=== PATIENT | female | born 1945 | race Caucasian/White ===

== ENCOUNTER 2017-11-17 20:36 | Emergency (ER) | payer OTHER, MEDICARE ==
[~2017-11-17] VITALS: Ht 157.5 cm; Wt 85.7 kg
[~2017-11-17 20:36] MED LIST: ACYSUS PO; ALBU8.5H2 IH; ALBU8.5HRX IH; ASP81CT PO; ASP81TEC PO; ASPI-84 PO; AZIT200S47 PO; CEFD125SRX PO; CEFD250S3 PO; CEFD300C3 PO; CLOP75TA PO; CYCL10TA45 PO; CYCL5TAB11 PO; D-ME118S33 PO; GUAI118L10 PO; HYDR118S PO; HYDR15SO6 PO; HYDROCODONE; IBUP200T48 PO; IPRA15SP NS; KETO-22 PO; LEVO125T6 PO; LEVO75TA57; LVT.112T PO; MORP20DI PO; MULT-383 PO; NAPR-243 PO; NEBI5TAB8 PO; NFNEB10T PO; NYST1000 PO; ONDAN4ODT SL; OSEL6SUS3 PO; OXYC500S2 PO; PRD152401 PO; PRD20T PO; ROSU5TAB; ROSU5TAB PO; SMV20T PO; SMXTMP10ML PO; SULF1TAB38 PO
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
[2017-11-17] MEDS ORDERED: IOHEXOL 350 MG/ML 100 ML (OMNIPAQUE 350) VIAL IV ONE (21:30)
[2017-11-17] MEDS ORDERED: NS 250 ML (IVPB) BAG IV ONE (21:30)
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
[2017-11-17 22:01] LABS: BASOPHILS % (AUTO) 1 % (0-10); EOSINOPHILS % (AUTO) 0 % (0-10); HEMATOCRIT 40 % (35-52); HEMOGLOBIN 12.9 G/DL (11.5-16.0); LYMPHOCYTES % (AUTO) 32 % (12-44); MEAN CORPUSCULAR HEMOGLOBIN 30 PG (25-34); MEAN CORPUSCULAR HGB CONC 33 G/DL (32-36); MEAN CORPUSCULAR VOLUME 93 FL (80-99); MEAN PLATELET VOLUME 12.8 FL (7.4-10.4); MONOCYTES # (AUTO) 0.5 X 10^3 (0.0-1.0); MONOCYTES % (AUTO) 9 % (0-12); NEUTROPHILS # (AUTO) 3.6 X 10^3 (1.8-7.8); NEUTROPHILS % (AUTO) 59 % (42-75); PLATELET COUNT 165 10^3/uL (130-400); RED BLOOD COUNT 4.29 10^6/uL (4.35-5.85); RED CELL DISTRIBUTION WIDTH 13.9 % (10.0-14.5); WHITE BLOOD COUNT 6.2 10^3/uL (4.3-11.0)
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
[2017-11-17 22:04] LABS: PROTHROMBIN TIME PATIENT 12.6 SEC (12.2-14.7)
[2017-11-17] MEDS ORDERED: KETOROLAC 30 MG/ML VIAL IVP STA (22:05)
[2017-11-17] MEDS ORDERED: fentaNYL INJECTION 100 MCG/2 ML AMP IVP STA (22:05)
[2017-11-17] MEDS ORDERED: ORPHENADRINE 60 MG/2 ML (NORFLEX) AMP IV STA (22:05)
[2017-11-17] MEDS ORDERED: TETANUS,DIPTH,PERTUSS P/F (BOOSTRIX) 0.5 ML VIAL IM STA (22:05)
[2017-11-17] MEDS ORDERED: LABETALOL HCL 20 MG/4 ML VIAL IV ONE (22:15)
[2017-11-17 22:17] LABS: ALANINE AMINOTRANSFERASE 13 U/L (0-55); ALBUMIN 4.3 GM/DL (3.2-4.5); BILIRUBIN,DIRECT 0.2 MG/DL (0.0-0.3); BILIRUBIN,INDIRECT 0.2 MG/DL; BILIRUBIN,TOTAL 0.4 MG/DL (0.1-1.0); BUN/CREATININE RATIO 14; CALCIUM 9.6 MG/DL (8.5-10.1); CARBON DIOXIDE 21 MMOL/L (21-32); CHLORIDE 110 MMOL/L (98-107); CHOLESTEROL 208 MG/DL (< 200); CREATININE SERUM 1.18 MG/DL (0.60-1.30); GFR ESTIMATED 45; GLUCOSE 131 MG/DL (70-105); HDL CHOLESTEROL 54 MG/DL (40-60); MAGNESIUM 2.2 MG/DL (1.8-2.4); SODIUM 142 MMOL/L (135-145); TOTAL PROTEIN 6.6 GM/DL (6.4-8.2); TRIGLYCERIDES 126 MG/DL (<150); VLDL CHOLESTEROL 25 MG/DL (5-40)
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
[2017-11-17] MEDS ORDERED: HYDR10SO4 PO (22:21)
[2017-11-17] MEDS ORDERED: IBUP100O28 PO (22:21)
[2017-11-17 22:29] LABS: BILIRUBIN,URINE NEGATIVE (NEGATIVE); CLARITY,URINE CLEAR; COLOR,URINE YELLOW; GLUCOSE, URINE (UA) NEGATIVE (NEGATIVE); KETONES,URINE NEGATIVE (NEGATIVE); LEUKOCYTE ESTERASE ,URINE NEGATIVE (NEGATIVE); NITRITE,URINE NEGATIVE (NEGATIVE); PH,URINE 7 (5-9); PROTEIN,URINE 1+ (NEGATIVE); UROBILINOGEN,URINE NORMAL (NORMAL)
[2017-11-17] MEDS ORDERED: RX-ACETAMINOPHEN/CODEINE 30 ML BTL PO PRN (22:30)
[2017-11-17 22:35] LABS: RBC,URINE RARE /HPF
[2017-11-17 22:41] LABS: ALKALINE PHOSPHATASE 72 U/L (40-136)
[2017-11-17 22:45] VITALS: BP 180/92
== END 2017-11-17 22:49 | disposition home or self-care (01) ==
LOC: EDUNIT# 20:36 → ER 20:37
DX: S16.1XXA Strain of muscle, fascia and tendon at neck level, initial encounter (principal); S23.3XXA Sprain of ligaments of thoracic spine, initial encounter; S39.012A Strain of muscle, fascia and tendon of lower back, initial encounter; S46.911A Strain of unspecified muscle, fascia and tendon at shoulder and upper arm level, right arm, initial encounter; S93.402A Sprain of unspecified ligament of left ankle, initial encounter; I10 Essential (primary) hypertension; J45.909 Unspecified asthma, uncomplicated; I25.10 Atherosclerotic heart disease of native coronary artery without angina pectoris; E78.00 Pure hypercholesterolemia, unspecified; R40.2142 Coma scale, eyes open, spontaneous, at arrival to emergency department; R40.2252 Coma scale, best verbal response, oriented, at arrival to emergency department; R40.2362 Coma scale, best motor response, obeys commands, at arrival to emergency department; K21.9 Gastro-esophageal reflux disease without esophagitis; E03.9 Hypothyroidism, unspecified; E11.9 Type 2 diabetes mellitus without complications; Z87.19 Personal history of other diseases of the digestive system; Z79.51 Long term (current) use of inhaled steroids; Z95.1 Presence of aortocoronary bypass graft; Z23 Encounter for immunization; Z98.1 Arthrodesis status; V47.5XXA Car driver injured in collision with fixed or stationary object in traffic accident, initial encounter
CPT/HCPCS: 36415; 70450; 71045; 71260; 72125; 72128; 72131; 72170; 73000; 73060; 73090; 73130; 73610; 74177; 80053; 80061; 80076; 80320; 81000; 82248; 83735; 83874; 84484; 84703; 85025; 85027; 85610; 85730; 86850; 86900; 86901; 90471; 90715; 93005; 96374; 96375

== ENCOUNTER 2017-11-24 10:22 | Emergency (ER) | payer OTHER, MEDICARE ==
[~2017-11-24] VITALS: Ht 157.5 cm; Wt 85.7 kg
[~2017-11-24 10:22] MED LIST changes: +HYDR10SO4 PO; +IBUP100O28 PO
[2017-11-24] MEDS ORDERED: fentaNYL INJECTION 100 MCG/2 ML AMP IVP ONE (11:00)
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
[2017-11-24 11:17] LABS: BASOPHILS % (AUTO) 0 % (0-10); EOSINOPHILS % (AUTO) 0 % (0-10); HEMATOCRIT 41 % (35-52); HEMOGLOBIN 13.2 G/DL (11.5-16.0); LYMPHOCYTES # (AUTO) 0.9 X 10^3 (1.0-4.0); LYMPHOCYTES % (AUTO) 15 % (12-44); MEAN CORPUSCULAR HEMOGLOBIN 30 PG (25-34); MEAN CORPUSCULAR HGB CONC 32 G/DL (32-36); MEAN CORPUSCULAR VOLUME 93 FL (80-99); MONOCYTES # (AUTO) 0.5 X 10^3 (0.0-1.0); MONOCYTES % (AUTO) 8 % (0-12); NEUTROPHILS # (AUTO) 4.5 X 10^3 (1.8-7.8); NEUTROPHILS % (AUTO) 77 % (42-75); PLATELET COUNT 166 10^3/uL (130-400); RED BLOOD COUNT 4.45 10^6/uL (4.35-5.85); WHITE BLOOD COUNT 5.8 10^3/uL (4.3-11.0)
[2017-11-24] MEDS ORDERED: ONDANSETRON 4 MG/2 ML (SDV) Z0FRAN IVP ONE (11:30)
[2017-11-24 11:39] LABS: INR 0.9 (0.8-1.4); PROTHROMBIN TIME PATIENT 12.5 SEC (12.2-14.7)
[2017-11-24 11:45] LABS: ALANINE AMINOTRANSFERASE 10 U/L (0-55); ALBUMIN 4.2 GM/DL (3.2-4.5); ALKALINE PHOSPHATASE 73 U/L (40-136); BILIRUBIN,TOTAL 0.5 MG/DL (0.1-1.0); BUN/CREATININE RATIO 23; CALCIUM 9.4 MG/DL (8.5-10.1); CARBON DIOXIDE 24 MMOL/L (21-32); CHLORIDE 108 MMOL/L (98-107); CREATININE SERUM 1.02 MG/DL (0.60-1.30); GFR ESTIMATED 53; GLUCOSE 100 MG/DL (70-105); MAGNESIUM 2.4 MG/DL (1.8-2.4); POTASSIUM 4.5 MMOL/L (3.6-5.0); SODIUM 142 MMOL/L (135-145); TOTAL PROTEIN 6.3 GM/DL (6.4-8.2)
[2017-11-24 11:53] LABS: MYOGLOBIN SERUM 43.8 NG/ML (10.0-92.0)
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
[2017-11-24 13:09] VITALS: BP 165/95
--- OUTSIDE RECORDS SUMMARY | 2017-11-26 03:37 | XMS REPORT | Continuity of Care Document ---
Author Author [facility] Organization [facility] Address Unknown Phone Unavailable Allergies Active Description Code Type Severity Reaction Onset Reported/Identified Relationship to Patient Clinical Status Yes No Known Drug Allergies [id number] Drug Allergy Unknown N/A 11/26/2008 Medications There is no data. Problems Date Dx Coded Attending Type Code Diagnosis Diagnosed By 09/24/2009 Ot 780.2 09/24/2009 Ot 780.4 07/29/2010 Ot 401.9 07/29/2010 Ot 724.02 07/29/2010 Ot 733.00 07/29/2010 Ot V57.1 11/08/2010 Ot 845.00 11/08/2010 Ot 959.7 11/08/2010 Ot E000.8 11/08/2010 Ot E001.0 11/08/2010 Ot E849.0 11/08/2010 Ot E880.9 11/22/2010 Ot 682.3 11/22/2010 Ot 913.4 10/24/2011 Ot 244.9 10/24/2011 Ot 272.4 10/24/2011 Ot 401.9 10/24/2011 Ot 414.01 10/24/2011 Ot 593.9 10/24/2011 Ot 729.81 10/24/2011 Ot 786.50 10/24/2011 Ot V13.02 10/24/2011 Ot V45.81 10/24/2011 Ot V58.66 10/24/2011 Ot V58.69 01/21/2012 Ot 244.9 01/21/2012 Ot 250.00 01/21/2012 Ot 272.4 01/21/2012 Ot 401.9 01/21/2012 Ot 414.00 01/21/2012 Ot 493.90 01/21/2012 Ot 530.81 01/21/2012 Ot 715.90 01/21/2012 Ot 729.1 01/21/2012 Ot 733.00 01/21/2012 Ot 786.52 01/21/2012 Ot V45.81 01/30/2012 Ot 053.9 01/30/2012 Ot 244.9 01/30/2012 Ot 403.90 01/30/2012 Ot 414.00 01/30/2012 Ot 530.81 01/30/2012 Ot 585.9 01/30/2012 Ot 599.0 01/30/2012 Ot 729.1 01/30/2012 Ot V45.81 04/11/2012 Ot 682.2 CELLULITIS OF TRUNK 11/04/2012 KORI VERGARA, ALEKSANDRA Beltran Ot 959.2 SHLDR/UPPER ARM INJ NOS 11/04/2012 ALEKSANDRA SHEIKH MD Ot E000.8 OTHER EXTERNAL CAUSE STATUS 11/04/2012 ALEKSANDRA SHEIKH MD Ot E819.9 TRAFFIC ACC NOS-PERS NOS 04/26/2013 ALEKSANDRA SHEIKH MD Ot 465.9 ACUTE URI NOS 04/26/2013 ALEKSANDRA SHEIKH MD Ot 784.0 HEADACHE 04/26/2013 ALEKSANDRA SHEIKH MD Ot 786.2 COUGH 04/26/2013 ALEKSANDRA SHEIKH MD Ot 787.01 NAUSEA WITH VOMITING 05/15/2013 MARIA ANTONIA MARIA MD Ot 721.1 05/26/2013 BLAKE BARRY MD Ot 338.18 OTHER ACUTE POSTOPERATIVE PAIN 05/26/2013 BLAKE BARRY MD Ot 723.1 CERVICALGIA 06/05/2013 MARAI ANTONIA MARIA MD Ot 250.00 DIAB DARLYN WO COMPL, TYPE II OR UNSPEC TY 06/05/2013 MARIA ANTONIA MARIA MD Ot 272.0 PURE HYPERCHOLESTEROLEM 06/05/2013 MARIA ANTONIA MARIA MD Ot 401.9 HYPERTENSION NOS 06/05/2013 MARIA ANTONAI MARIA MD Ot 414.00 CORON ATHEROSCLER NOS TYPE VESSEL, NATIV 06/05/2013 MARIA ANTONIA MARIA MD Ot 478.6 EDEMA OF LARYNX 06/05/2013 MARIA ANTONIA MARIA MD Ot 493.90 ASTHMA, UNSPECIFIED 06/05/2013 MARIA ANTONIA MARIA MD Ot 518.0 PULMONARY COLLAPSE 06/05/2013 MARIA ANTONIA MARIA MD Ot 518.51 ACUTE RESPIRATORY FAILURE FOLLOWING TRAU 06/05/2013 MARIA ANTONIA MARIA MD Ot 530.81 ESOPHAGEAL REFLUX 06/05/2013 MARIA ANTONIA MARIA MD Ot 721.1 CERV SPONDYL W MYELOPATH 06/05/2013 MARIA ANTONIA MARIA MD Ot 729.1 MYALGIA AND MYOSITIS NOS 06/05/2013 MARIA ANTONIA MARIA MD Ot 733.00 OSTEOPOROSIS NOS 06/05/2013 MARIA ANTONIA MARIA MD Ot 996.49 [facility] CYTOPATHOLOGY TECHNOLOGIST ORTHOPEDIC 06/05/2013 MARIA ANTONIA MARIA MD Ot V45.81 AORTOCORONARY BYPASS 09/13/2013 RENZO BARNHART Ot 709.2 SCAR FIBROSIS OF SKIN 09/13/2013 RENZO BARNHART Ot V45.4 ARTHRODESIS STATUS 09/13/2013 RENZO BARNHART Ot V57.1 PHYSICAL THERAPY NEC 12/20/2013 MEGHNA THORNE APRN Ot 272.0 PURE HYPERCHOLESTEROLEM 12/20/2013 MEGHNA THORNE APRN Ot 366.9 CATARACT NOS 12/20/2013 MEGHNA THORNE APRN Ot 401.9 HYPERTENSION NOS 12/20/2013 MEGHNA THORNE APRN Ot 414.01 CORONARY ATHEROSCLEROSIS OF [place] CORON 12/20/2013 MEGHNA THORNE APRN Ot 490 BRONCHITIS NOS 12/20/2013 MEGHNA THORNE APRN Ot 564.1 IRRITABLE BOWEL SYNDROME 12/20/2013 MEGHNA THORNE APRN Ot 786.2 COUGH 12/20/2013 MEGHNA THORNE APRN Ot V58.62 ENCOUNT FOR LONG-TERM(CURRENT) USE OF AN 12/20/2013 MEGHNA THORNE APRN Ot V58.65 LONG-TERM(CURRENT)USE OF STEROIDS 12/20/2013 MEGHNA THORNE APRN Ot V58.66 LONG-TERM (CURRENT) USE OF ASPIRIN 12/20/2013 MEGHNA THORNE APRN Ot V58.69 OT MED,LT,CURRENT USE 03/31/2014 ESTHER MELENDEZ MD Ot 724.02 03/31/2014 ESTHER MELENDEZ MD Ot V72.84 04/01/2014 ESTHER MELENDEZ MD Ot 228.09 HEMANGIOMA NEC 04/01/2014 ESTHER MELENDEZ MD Ot 724.03 SPINAL STENOSIS, LUMBAR REGION, W NEUROG 04/01/2014 ESTHER MELENDEZ MD Ot 733.13 PATHOLOGIC FRACTURE, VERTEBRAE 04/01/2014 ESTHER MELENDEZ MD Ot V57.1 PHYSICAL THERAPY NEC 04/04/2014 ESTHER MELENDEZ MD Ot 228.00 04/04/2014 ESTHER MELENDEZ MD Ot 724.02 04/04/2014 ESTHER MELENDEZ MD Ot V72.63 04/04/2014 ESTHER MELENDEZ MD Ot V74.8 05/30/2014 Ot 272.4 05/30/2014 Ot 401.9 05/30/2014 Ot 414.00 05/30/2014 Ot 429.3 05/30/2014 Ot 272.4 05/30/2014 Ot 401.9 05/30/2014 Ot 414.00 05/30/2014 Ot 272.4 05/30/2014 Ot 429.3 05/30/2014 Ot 786.09 05/30/2014 Ot 786.2 05/30/2014 Ot 786.50 05/30/2014 Ot 401.9 05/30/2014 Ot 414.00 05/30/2014 Ot 599.0 05/30/2014 Ot 272.4 05/30/2014 Ot 401.9 05/30/2014 Ot 414.00 05/30/2014 Ot 433.10 05/30/2014 Ot 786.09 05/30/2014 JANIE VERGARA, VINH Vargas Ot 272.4 05/30/2014 MARIA ANTONIA MARIA MD Ot 723.0 05/30/2014 MARIA ANTONIA MARIA MD Ot V72.84 05/30/2014 MARIA ANTONIA MARIA MD Ot V74.8 05/30/2014 RACHEL ECHEVERRIA MOLTEN IRON POURER Ot 786.07 05/30/2014 RACHEL ECHEVERRIA Ot 786.2 05/30/2014 MARIA ANTONIA MARIA MD Ot V54.01 05/30/2014 MARIA ANTONIA MARIA MD Ot V72.84 05/30/2014 MARIA ANTONIA MARIA MD Ot 724.2 05/30/2014 MARIA ANTONIA MARIA MD Ot 729.5 05/30/2014 MARIA ANTONIA MARIA MD Ot 793.7 05/30/2014 ESTHER MELENDEZ MD Ot 228.00 05/30/2014 ESTHER MELENDEZ MD Ot 724.02 05/30/2014 ESTHER MELENDEZ MD Ot V72.63 05/30/2014 ESTHER MELENDEZ MD Ot V74.8 05/30/2014 NORA VERGARA, ESTHER Vargas Ot 724.02 05/30/2014 NORA VERGARA, ESTHER Vargas Ot V72.84 06/10/2014 MEGHNA THORNE BATT PACKER Ot 487.1 FLU W RESP MANIFEST NEC 06/10/2014 MEGHNA THORNE BATT PACKER Ot 786.2 COUGH 06/19/2014 ORENDER DO, RADHA S Ot 250.00 DIAB DARLYN WO COMPL, TYPE II OR UNSPEC TY 06/19/2014 ORENDER DO, RADHA S Ot 272.0 PURE HYPERCHOLESTEROLEM 06/19/2014 ORENDER DO, RADHA S Ot 278.00 OBESITY, NOS 06/19/2014 ORENDER DO, RADHA S Ot 401.9 HYPERTENSION NOS 06/19/2014 ORENDER DO, RADHA S Ot 414.00 CORON ATHEROSCLER NOS TYPE VESSEL, NATIV 06/19/2014 ORENDER DO, RADHA S Ot 486 PNEUMONIA, ORGANISM NOS 06/19/2014 ORENDER DO, RADHA S Ot 487.0 INFLUENZA WITH PNEUMONIA 06/19/2014 ORENDER DO, RADHA S Ot 493.90 ASTHMA, UNSPECIFIED 06/19/2014 ORENDER DO, RADHA S Ot 530.81 ESOPHAGEAL REFLUX 06/19/2014 ORENDER DO, RADHA S Ot 553.3 DIAPHRAGMATIC HERNIA 06/19/2014 ORENDER DO, RADHA S Ot 564.1 IRRITABLE BOWEL SYNDROME 06/19/2014 ORENDER DO, RADHA S Ot 596.51 HYPERTONICITY OF BLADDER 06/19/2014 ORENDER DO, RADHA S Ot 723.0 CERVICAL SPINAL STENOSIS 06/19/2014 ORENDER DO, RADHA S Ot 785.0 TACHYCARDIA NOS 06/19/2014 ORENDER DO, RADHA S Ot V45.81 AORTOCORONARY BYPASS 06/19/2014 ORENDER DO, RADHA S Ot V85.41 BODY MASS INDEX 40.0-44.9, ADULT 06/23/2014 YARY DOFRANCE Ot 717.2 06/23/2014 YARY DOFRANCE Ot 717.7 06/23/2014 YARY DOFRANCE Ot 727.51 06/23/2014 ORENDER DO, RADHA S Ot 244.9 06/23/2014 ORENDER DO, RADHA S Ot 272.4 06/23/2014 ORENDER DO, RADHA S Ot 780.79 11/27/2014 ORENDER DO, RADHA S Ot 244.9 11/27/2014 ORENDER DO, RADHA S Ot 250.00 11/27/2014 ORENDER DO, RADHA S Ot 272.4 01/08/2015 Ot 272.4 01/08/2015 Ot 401.9 01/08/2015 Ot 414.00 01/08/2015 Ot 429.3 01/08/2015 Ot 272.4 01/08/2015 Ot 401.9 01/08/2015 Ot 414.00 01/08/2015 Ot 272.4 01/08/2015 Ot 429.3 01/08/2015 Ot 786.09 01/08/2015 Ot 786.2 01/08/2015 Ot 786.50 01/08/2015 Ot 401.9 01/08/2015 Ot 414.00 01/08/2015 Ot 599.0 01/08/2015 Ot 272.4 01/08/2015 Ot 401.9 01/08/2015 Ot 414.00 01/08/2015 Ot 433.10 01/08/2015 Ot 786.09 01/08/2015 JANIE VERGARA, VINH Vargas Ot 272.4 01/08/2015 CROW VERGARA, MARIA ANTONIA Russo Ot 723.0 01/08/2015 CROW VERGARA, MARIA ANTONIA Russo Ot V72.84 01/08/2015 CROW VERGARA, MARIA ANTONIA Russo Ot V74.8 01/08/2015 RACHEL ECHEVERRIA Ot 786.07 01/08/2015 RACHEL ECHEVERRIA Ot 786.2 01/08/2015 CROW VERGARA, MARIA ANTONIA Russo Ot V54.01 01/08/2015 MARIA ANTONIA MARIA MD Ot V72.84 01/08/2015 CROW VERGARA, MARIA ANTONIA Russo Ot 724.2 01/08/2015 CROW VERGARA, MARIA ANTONIA Russo Ot 729.5 01/08/2015 MARIA ANTONIA MARIA MD Ot 793.7 01/08/2015 NORA VERGARA, ESTHER Vargas Ot 228.00 01/08/2015 NORA VERGARA, ESTHER Vargas Ot 724.02 01/08/2015 ESTHER MELENDEZ MD Ot V72.63 01/08/2015 ESTHER MELENDEZ MD Ot V74.8 01/08/2015 ESTHER MELENDEZ MD Ot 724.02 01/08/2015 ESTHER MELENDEZ MD Ot V72.84 01/08/2015 YARY DO, FRANCE F Ot 717.2 01/08/2015 YARY DO, FRANCE F Ot 717.7 01/08/2015 YARY DO, FRANCE F Ot 727.51 01/08/2015 ORENDER DO, RADHA S Ot 244.9 01/08/2015 ORENDER DO, RADHA S Ot 272.4 01/08/2015 ORENDER DO, RADHA S Ot 780.79 01/08/2015 ORENDER DO, RADHA S Ot 244.9 01/08/2015 ORENDER DO, RADHA S Ot 250.00 01/08/2015 ORENDER DO, RADHA S Ot 272.4 01/08/2015 ESTHER MELENDEZ MD Ot 723.1 CERVICALGIA 01/08/2015 ESTHER MELENDEZ MD Ot 724.02 SPINAL STENOSIS, LUMBAR REG, W/OUT NEURO 01/08/2015 ESTHER MELENDEZ MD Ot M48.06 SPINAL STENOSIS, LUMBAR REGION 01/08/2015 ESTHER MELENDEZ MD Ot M54.2 CERVICALGIA 01/08/2015 ESTHER MELENDEZ MD Ot V45.4 ARTHRODESIS STATUS 02/10/2015 Ot 272.4 02/10/2015 Ot 401.9 02/10/2015 Ot 414.00 02/10/2015 Ot 429.3 02/10/2015 Ot 272.4 02/10/2015 Ot 401.9 02/10/2015 Ot 414.00 02/10/2015 Ot 272.4 02/10/2015 Ot 429.3 02/10/2015 Ot 786.09 02/10/2015 Ot 786.2 02/11/2015 Ot 272.4 02/11/2015 Ot 401.9 02/11/2015 Ot 414.00 02/11/2015 Ot 429.3 02/11/2015 Ot 272.4 02/11/2015 Ot 401.9 02/11/2015 Ot 414.00 02/11/2015 Ot 272.4 02/11/2015 Ot 429.3 02/11/2015 Ot 786.09 02/11/2015 Ot 786.2 02/11/2015 Ot 272.4 02/11/2015 Ot 401.9 02/11/2015 Ot 414.00 02/11/2015 Ot 429.3 02/11/2015 Ot 272.4 02/11/2015 Ot 401.9 02/11/2015 Ot 414.00 02/11/2015 Ot 272.4 02/11/2015 Ot 429.3 02/11/2015 Ot 786.09 02/11/2015 Ot 786.2 02/11/2015 Ot 272.4 02/11/2015 Ot 401.9 02/11/2015 Ot 414.00 02/11/2015 Ot 429.3 02/11/2015 Ot 272.4 02/11/2015 Ot 401.9 02/11/2015 Ot 414.00 02/11/2015 Ot 272.4 02/11/2015 Ot 429.3 02/11/2015 Ot 786.09 02/11/2015 Ot 786.2 09/13/2015 BLAKE BARRY MD Ot 338.18 OTHER ACUTE POSTOPERATIVE PAIN 09/13/2015 BLAKE BARRY MD Ot 723.1 CERVICALGIA 10/11/2015 MEGHNA THORNE APRN Ot H66.91 OTITIS MEDIA, UNSPECIFIED, RIGHT EAR 10/11/2015 MEGHNA THORNE APRN Ot I51.7 CARDIOMEGALY 10/11/2015 MEGHNA THORNE APRN Ot J40 BRONCHITIS, NOT SPECIFIED ACUTE OR CH 10/13/2015 MEGHNA THORNE BATT PACKER Ot H66.91 OTITIS MEDIA, UNSPECIFIED, RIGHT EAR 10/13/2015 MEGHNA THORNE BATT PACKER Ot I51.7 CARDIOMEGALY 10/13/2015 MEGHNA THORNE BATT PACKER Ot J40 BRONCHITIS, NOT SPECIFIED ACUTE OR CH 10/13/2015 MEGHNA THORNE APRN Ot H66.91 OTITIS MEDIA, UNSPECIFIED, RIGHT EAR 10/13/2015 MEGHNA THORNE APRN Ot I51.7 CARDIOMEGALY 10/13/2015 MEGHNA THORNE BATT PACKER Ot J40 BRONCHITIS, NOT SPECIFIED ACUTE OR CH 11/13/2015 BLAKE BARRY MD Ot 338.18 OTHER ACUTE POSTOPERATIVE PAIN 11/13/2015 BLAKE BARRY MD Ot 723.1 CERVICALGIA 02/13/2016 BLAKE BARRY MD Ot 338.18 OTHER ACUTE POSTOPERATIVE PAIN 02/13/2016 BLAKE BARRY MD Ot 723.1 CERVICALGIA 09/29/2017 Ot 272.4 HYPERLIPIDEMIA NEC/NOS 09/29/2017 Ot 401.9 HYPERTENSION NOS 09/29/2017 Ot 414.00 CORON ATHEROSCLER NOS TYPE VESSEL, NATIV 09/29/2017 Ot 433.10 CAROTID ARTERY OCCLUSION W O CEREBRAL IN 09/29/2017 Ot 786.09 RESPIRATORY ABNORM NEC 09/29/2017 VINH LIMA MD Ot 272.4 HYPERLIPIDEMIA NEC/NOS 09/29/2017 MARIA ANTONIA MARIA MD Ot 723.0 CERVICAL SPINAL STENOSIS 09/29/2017 MARIA ANTONIA MARIA MD Ot V72.84 EXAM PRE-OPERATIVE NOS 09/29/2017 MARIA ANTONIA MARIA MD Ot V74.8 SCREEN-BACTERIAL DIS NEC 09/29/2017 RACHEL ECHEVERRIA MOLTEN IRON POURER Ot 786.07 WHEEZING 09/29/2017 RACHEL ECHEVERRIA MOLTEN IRON POURER Ot 786.2 COUGH 09/29/2017 MARIA ANTONIA MARIA MD Ot V54.01 ENCNTR FOR REMOVAL OF INTERNAL FIXATION 09/29/2017 MARIA ANTONIA MARIA MD Ot V72.84 EXAM PRE-OPERATIVE NOS 09/29/2017 MARIA ANTONIA MARIA MD Ot 724.2 LUMBAGO 09/29/2017 MARIA ANTONIA MARIA MD Ot 729.5 PAIN IN LIMB 09/29/2017 MARIA ANTONIA MARIA MD Ot 793.7 NOSP (ABN) FINDINGS ON RADIOLOGICAL OT 09/29/2017 ESTHER MELENDEZ MD Ot 228.00 HEMANGIOMA NOS 09/29/2017 ESTHER MELENDEZ MD Ot 724.02 SPINAL STENOSIS, LUMBAR REG, W/OUT NEURO 09/29/2017 ESTHER MELENDEZ MD Ot V72.63 PRE-PROCEDURAL LABORATORY EXAMINATION 09/29/2017 ESTHER MELENDEZ MD Ot V74.8 SCREEN-BACTERIAL DIS NEC 09/29/2017 ESTHER MELENDEZ MD Ot 724.02 SPINAL STENOSIS, LUMBAR REG, W/OUT NEURO 09/29/2017 ESTHER MELENDEZ MD Ot V72.84 EXAM PRE-OPERATIVE NOS 09/29/2017 FRANCE PRINGLE DO Ot 717.2 DERANG POST MED MENISCUS 09/29/2017 YARY DO, FRANCE F Ot 717.7 CHONDROMALACIA PATELLAE 09/29/2017 YARY DO, FRANCE F Ot 727.51 POPLITEAL SYNOVIAL CYST 09/29/2017 ORENDER DO, RADHA S Ot 244.9 HYPOTHYROIDISM NOS 09/29/2017 ORENDER DO, RADHA S Ot 272.4 HYPERLIPIDEMIA NEC/NOS 09/29/2017 ORENDER DO, RADHA S Ot 780.79 OTH MALAISE FATIGUE 09/29/2017 ORENDER DO, RADHA S Ot 244.9 HYPOTHYROIDISM NOS 09/29/2017 ORENDER DO, RADHA S Ot 250.00 DIAB DARLYN WO COMPL, TYPE II OR UNSPEC TY 09/29/2017 ORENDER DO, RADHA S Ot 272.4 HYPERLIPIDEMIA NEC/NOS 09/29/2017 MEGHNA THORNE APRN Ot B37.0 CANDIDAL STOMATITIS 09/29/2017 MEGHNA THORNE APRN Ot E11.9 TYPE 2 DIABETES MELLITUS WITHOUT COMPLIC 09/29/2017 MEGHNA THORNE APRN Ot E78.00 PURE HYPERCHOLESTEROLEMIA, UNSPECIFIED 09/29/2017 MEGHNA THORNE APRN Ot I10 ESSENTIAL (PRIMARY) HYPERTENSION 09/29/2017 MEGHNA THORNE BATT PACKER Ot I25.10 ATHSCL HEART DISEASE OF [place] CORONARY 09/29/2017 MEGHNA THORNE APRN Ot J02.9 ACUTE PHARYNGITIS, UNSPECIFIED 09/29/2017 MEGHNA THORNE APRN Ot J04.0 ACUTE LARYNGITIS 09/29/2017 MEGHNA THORNE APRN Ot J40 BRONCHITIS, NOT SPECIFIED ACUTE OR CH 09/29/2017 MEGHNA THORNE APRN Ot K58.9 IRRITABLE BOWEL SYNDROME WITHOUT DIARRHE 09/29/2017 MEGHNA THORNE APRN Ot M48.02 SPINAL STENOSIS, CERVICAL REGION 09/29/2017 MEGHNA THORNE APRN Ot Z95.1 PRESENCE OF AORTOCORONARY BYPASS GRAFT 09/29/2017 MEGHNA THORNE APRN Ot Z98.890 OTHER SPECIFIED POSTPROCEDURAL STATES 11/17/2017 JESSIE MARTIN DO Ot E03.9 HYPOTHYROIDISM, UNSPECIFIED 11/17/2017 JESSIE MARTIN DO Ot E11.9 TYPE 2 DIABETES MELLITUS WITHOUT COMPLIC 11/17/2017 JESSIE MARTIN DO Ot E78.00 PURE HYPERCHOLESTEROLEMIA, UNSPECIFIED 11/17/2017 JESSIE MARTIN DO Ot I10 ESSENTIAL (PRIMARY) HYPERTENSION 11/17/2017 JESSIE MARTIN DO, Ot I25.10 ATHSCL HEART DISEASE OF [place] CORONARY 11/17/2017 JESSIE MARTIN DO, Ot J45.909 UNSPECIFIED ASTHMA, UNCOMPLICATED 11/17/2017 JESSIE MARTIN DO, Ot K21.9 GASTRO-ESOPHAGEAL REFLUX DISEASE WITHOUT 11/17/2017 JESSIE MARTIN DO, Ot M25.511 PAIN IN RIGHT SHOULDER 11/17/2017 JESSIE MARTIN DO, Ot R40.2142 COMA SCALE, EYES OPEN, SPONTANEOUS, EMR 11/17/2017 JESSIE MARTIN DO, Ot R40.2252 COMA SCALE, BEST VERBAL RESPONSE, ORIENT 11/17/2017 JESSIE MARTIN DO, Ot R40.2362 COMA SCALE, BEST MOTOR RESPONSE, OBEYS C 11/17/2017 JESSIE MARTIN DO, Ot S16.1XXA STRAIN OF MUSCLE, FASCIA AND TENDON AT N 11/17/2017 JESSIE MARTIN DO Ot S23.3XXA SPRAIN OF LIGAMENTS OF THORACIC SPINE, I 11/17/2017 JESSIE MARTIN DO, Ot S39.012A STRAIN OF MUSCLE, FASCIA AND TENDON OF L 11/17/2017 JESSIE MARTIN DO, Ot S46.911A STRAIN UNSP MUSC/FASC/TEND AT SHLDR/UP A 11/17/2017 JESSIE MARTIN DO, Ot S93.402A SPRAIN OF UNSPECIFIED LIGAMENT OF LEFT A 11/17/2017 JESSIE MARTIN DO, Ot V47.5XXA FUR CLEANER INJURED IN CLSN WITH STATNRY 11/17/2017 JESSIE MARTIN DO, Ot Z23 ENCOUNTER FOR IMMUNIZATION 11/17/2017 JESSIE MARTIN DO, Ot Z79.51 TERMINAL WORKER (CURRENT) USE OF INHALED STERO 11/17/2017 JESSIE MARTIN DO, Ot Z87.19 PERSONAL HISTORY OF OTHER DISEASES OF TH 11/17/2017 JESSIE MARTIN DO, Ot Z95.1 PRESENCE OF AORTOCORONARY BYPASS GRAFT 11/17/2017 JESSIE MARTIN DO, Ot Z98.1 ARTHRODESIS STATUS 11/20/2017 VERONICA DO, JESSIE K Ot E03.9 HYPOTHYROIDISM, UNSPECIFIED 11/20/2017 VERONICA JESSIE LUIS Ot E11.9 TYPE 2 DIABETES MELLITUS WITHOUT COMPLIC 11/20/2017 JESSIE MARTIN DO Ot E78.00 PURE HYPERCHOLESTEROLEMIA, UNSPECIFIED 11/20/2017 JESSIE MARTIN DO Ot I10 ESSENTIAL (PRIMARY) HYPERTENSION 11/20/2017 JESSIE MARTIN DO Ot I25.10 ATHSCL HEART DISEASE OF [place] CORONARY 11/20/2017 JESSIE MARTIN DO, Ot J45.909 UNSPECIFIED ASTHMA, UNCOMPLICATED 11/20/2017 VERONICA JESSIE LUIS Ot K21.9 GASTRO-ESOPHAGEAL REFLUX DISEASE WITHOUT 11/20/2017 JESSIE MARTIN DO Ot M25.511 PAIN IN RIGHT SHOULDER 11/20/2017 JESSIE MARTIN DO, Ot R40.2142 COMA SCALE, EYES OPEN, SPONTANEOUS, EMR 11/20/2017 JESSIE MARTIN DO, Ot R40.2252 COMA SCALE, BEST VERBAL RESPONSE, ORIENT 11/20/2017 JESSIE MARTIN DO, Ot R40.2362 COMA SCALE, BEST MOTOR RESPONSE, OBEYS C 11/20/2017 JESSIE MARTIN DO Ot S16.1XXA STRAIN OF MUSCLE, FASCIA AND TENDON AT N 11/20/2017 JESSIE MARTIN DO, Ot S23.3XXA SPRAIN OF LIGAMENTS OF THORACIC SPINE, I 11/20/2017 JESSIE MARTIN DO, Ot S39.012A STRAIN OF MUSCLE, FASCIA AND TENDON OF L 11/20/2017 JESSIE MARTIN DO, Ot S46.911A STRAIN UNSP MUSC/FASC/TEND AT SHLDR/UP A 11/20/2017 JESSIE MARTIN DO, Ot S93.402A SPRAIN OF UNSPECIFIED LIGAMENT OF LEFT A 11/20/2017 JESSIE MARTIN DO, Ot V47.5XXA FUR CLEANER INJURED IN CLSN WITH STATNRY 11/20/2017 JESSIE MARTIN DO, Ot Z23 ENCOUNTER FOR IMMUNIZATION 11/20/2017 JESSIE MARTIN DO, Ot Z79.51 TERMINAL WORKER (CURRENT) USE OF INHALED STERO 11/20/2017 JESSIE MARTIN DO, Ot Z87.19 PERSONAL HISTORY OF OTHER DISEASES OF TH 11/20/2017 JESSIE MARTIN DO, Ot Z95.1 PRESENCE OF AORTOCORONARY BYPASS GRAFT 11/20/2017 JESSIE MARTIN DO Ot Z98.1 ARTHRODESIS STATUS Procedures Code Description Performed By Performed On 77.79 EXCISE BONE FOR GFT NEC 05/29/2013 78.69 REMOVE INT FIX DEVIC NEC 05/29/2013 80.99 EXCISION OF JOINT NEC 05/29/2013 81.02 OTH CERVICAL FUSION OF ANTERIOR COLUMN, 05/29/2013 81.03 OTH CERVICAL FUSION OF POSTERIOR COLUMN, 05/29/2013 81.63 FUSION/REFUS OF 4-8 VERTEBRAE 05/29/2013 84.51 INSERTION OF INTERBODY SPINAL FUSION DEV 05/29/2013 96.71 CONTINUOUS INVASIVE MECHANICAL VENTILATI 05/29/2013 Results Test Result Range Streptococcus pyogenes antigen detection - 09/29/17 17:23 Streptococcus pyogenes antigen detection NEGATIVE NEGATIVE Bacterial throat culture - 09/29/17 17:23 Bacterial throat culture NBS NRG Complete blood count (CBC) with automated white blood cell (WBC) differential - 09/29/17 17:55 Blood leukocytes automated count (number/volume) 5.3 10*3/uL 4.3-11.0 Blood erythrocytes automated count (number/volume) 4.21 10*6/uL 4.35-5.85 Venous blood hemoglobin measurement (mass/volume) 12.7 g/dL 11.5-16.0 Blood hematocrit (volume fraction) 39 % 35-52 Automated erythrocyte mean corpuscular volume 92 [foz_us] 80-99 Automated erythrocyte mean corpuscular hemoglobin (mass per erythrocyte) 30 pg 25-34 Automated erythrocyte mean corpuscular hemoglobin concentration measurement ( mass/volume) 33 g/dL 32-36 Automated erythrocyte distribution width ratio 13.0 % 10.0-14.5 Automated blood platelet count (count/volume) 129 10*3/uL 130-400 Automated blood platelet mean volume measurement 11.6 [foz_us] 7.4-10.4 Automated blood neutrophils/100 leukocytes 78 % 42-75 Automated blood lymphocytes/100 leukocytes 11 % 12-44 Blood monocytes/100 leukocytes 11 % 0-12 Automated blood eosinophils/100 leukocytes 0 % 0-10 Automated blood basophils/100 leukocytes 0 % 0-10 Blood neutrophils automated count (number/volume) 4.1 10*3 1.8-7.8 Blood lymphocytes automated count (number/volume) 0.6 10*3 1.0-4.0 Blood monocytes automated count (number/volume) 0.6 10*3 0.0-1.0 Automated eosinophil count 0.0 10*3/uL 0.0-0.3 Automated blood basophil count (count/volume) 0.0 10*3/uL 0.0-0.1 Comprehensive metabolic panel - 09/29/17 17:55 Serum or plasma sodium measurement (moles/volume) 141 mmol/L 135-145 Serum or plasma potassium measurement (moles/volume) 3.7 mmol/L 3.6-5.0 Serum or plasma chloride measurement (moles/volume) 107 mmol/L 98-107 Carbon dioxide 23 mmol/L 21-32 Serum or plasma anion gap determination (moles/volume) 11 mmol/L 5-14 Serum or plasma urea nitrogen measurement (mass/volume) 10 mg/dL 7-18 Serum or plasma creatinine measurement (mass/volume) 0.82 mg/dL 0.60-1.30 Serum or plasma urea nitrogen/creatinine mass ratio 12 NRG Serum or plasma creatinine measurement with calculation of estimated glomerular filtration rate > NRG Serum or plasma glucose measurement (mass/volume) 112 mg/dL 70-105 Serum or plasma calcium measurement (mass/volume) 9.4 mg/dL 8.5-10.1 Serum or plasma total bilirubin measurement (mass/volume) 0.6 mg/dL 0.1-1.0 Serum or plasma alkaline phosphatase measurement (enzymatic activity/volume) 72 U/L 40-136 Serum or plasma aspartate aminotransferase measurement (enzymatic activity/ volume) 11 U/L 5-34 Serum or plasma alanine aminotransferase measurement (enzymatic activity/volume ) 7 U/L 0-55 Serum or plasma protein measurement (mass/volume) 6.5 g/dL 6.4-8.2 Serum or plasma albumin measurement (mass/volume) 4.3 g/dL 3.2-4.5 PT panel in platelet poor plasma by coagulation assay - 11/17/17 21:49 Prothrombin time (PT) in platelet poor plasma by coagulation assay 12.6 s 12.2-14.7 INR in platelet poor plasma or blood by coagulation assay 1.0 0.8-1.4 Activated partial thromboplastin time (aPTT) in platelet poor plasma bycoagulation assay - 11/17/17 21:49 Activated partial thromboplastin time (aPTT) in platelet poor plasma bycoagulation assay 24 s 24-35 Serum or plasma choriogonadotropin ( test) detection - 11/17/17 21:49 Serum or plasma choriogonadotropin ( test) detection NEGATIVE NEGATIVE Complete blood count (CBC) with automated white blood cell (WBC) differential - 11/17/17 21:49 Blood leukocytes automated count (number/volume) 6.2 10*3/uL 4.3-11.0 Blood erythrocytes automated count (number/volume) 4.29 10*6/uL 4.35-5.85 Venous blood hemoglobin measurement (mass/volume) 12.9 g/dL 11.5-16.0 Blood hematocrit (volume fraction) 40 % 35-52 Automated erythrocyte mean corpuscular volume 93 [foz_us] 80-99 Automated erythrocyte mean corpuscular hemoglobin (mass per erythrocyte) 30 pg 25-34 Automated erythrocyte mean corpuscular hemoglobin concentration measurement ( mass/volume) 33 g/dL 32-36 Automated erythrocyte distribution width ratio 13.9 % 10.0-14.5 Automated blood platelet count (count/volume) 165 10*3/uL 130-400 Automated blood platelet mean volume measurement 12.8 [foz_us] 7.4-10.4 Automated blood neutrophils/100 leukocytes 59 % 42-75 Automated blood lymphocytes/100 leukocytes 32 % 12-44 Blood monocytes/100 leukocytes 9 % 0-12 Automated blood eosinophils/100 leukocytes 0 % 0-10 Automated blood basophils/100 leukocytes 1 % 0-10 Blood neutrophils automated count (number/volume) 3.6 10*3 1.8-7.8 Blood lymphocytes automated count (number/volume) 2.0 10*3 1.0-4.0 Blood monocytes automated count (number/volume) 0.5 10*3 0.0-1.0 Automated eosinophil count 0.0 10*3/uL 0.0-0.3 Automated blood basophil count (count/volume) 0.0 10*3/uL 0.0-0.1 Comprehensive metabolic panel - 11/17/17 21:49 Serum or plasma sodium measurement (moles/volume) 142 mmol/L 135-145 Serum or plasma potassium measurement (moles/volume) 4.0 mmol/L 3.6-5.0 Serum or plasma chloride measurement (moles/volume) 110 mmol/L 98-107 Carbon dioxide 21 mmol/L 21-32 Serum or plasma anion gap determination (moles/volume) 11 mmol/L 5-14 Serum or plasma urea nitrogen measurement (mass/volume) 17 mg/dL 7-18 Serum or plasma creatinine measurement (mass/volume) 1.18 mg/dL 0.60-1.30 Serum or plasma urea nitrogen/creatinine mass ratio 14 NRG Serum or plasma creatinine measurement with calculation of estimated glomerular filtration rate 45 NRG Serum or plasma glucose measurement (mass/volume) 131 mg/dL 70-105 Serum or plasma calcium measurement (mass/volume) 9.6 mg/dL 8.5-10.1 Serum or plasma total bilirubin measurement (mass/volume) 0.4 mg/dL 0.1-1.0 Serum or plasma alkaline phosphatase measurement (enzymatic activity/volume) 72 U/L 40-136 Serum or plasma aspartate aminotransferase measurement (enzymatic activity/ volume) 16 U/L 5-34 Serum or plasma alanine aminotransferase measurement (enzymatic activity/volume ) 13 U/L 0-55 Serum or plasma protein measurement (mass/volume) 6.6 g/dL 6.4-8.2 Serum or plasma albumin measurement (mass/volume) 4.3 g/dL 3.2-4.5 Liver function panel (serum or plasma alk phos, alb, total and direct bili, total protein, ALT, AST) - 11/17/17 21:49 Bilirubin direct 0.2 mg/dL 0.0-0.3 Serum or plasma indirect bilirubin measurement (mass/volume) 0.2 mg/ dL NRG Magnesium - 11/17/17 21:49 Magnesium 2.2 mg/dL 1.8-2.4 Serum or plasma troponin i.cardiac measurement (mass/volume) - 11/17/17 21:49 Serum or plasma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
== END 2017-11-24 13:19 | disposition home or self-care (01) ==
LOC: EDUNIT# 10:22 → ER 10:24
DX: S22.41XA Multiple fractures of ribs, right side, initial encounter for closed fracture (principal); J45.909 Unspecified asthma, uncomplicated; I25.10 Atherosclerotic heart disease of native coronary artery without angina pectoris; E78.00 Pure hypercholesterolemia, unspecified; I10 Essential (primary) hypertension; E03.9 Hypothyroidism, unspecified; E11.9 Type 2 diabetes mellitus without complications; K21.9 Gastro-esophageal reflux disease without esophagitis; Z87.19 Personal history of other diseases of the digestive system; Z95.1 Presence of aortocoronary bypass graft; Z79.51 Long term (current) use of inhaled steroids; Z79.02 Long term (current) use of antithrombotics/antiplatelets; V49.88XA Car occupant (driver) (passenger) injured in other specified transport accidents, initial encounter
CPT/HCPCS: 36415; 71045; 80053; 83735; 83874; 84484; 85025; 85610; 85730; 93005; 93041; 94664; 96374; 96375

== ENCOUNTER → 2023-01-09 | Outpatient (CLI) | payer MEDICARE, OTHER ==
[~2023-01-09] MED LIST changes: +IBUP-2558 PO; -IBUP100O28 PO
[2023-01-09 10:40] LABS: ALBUMIN 4.1 GM/DL (3.2-4.5); POTASSIUM 3.9 MMOL/L (3.6-5.0)
[2023-01-09 10:41] LABS: CALCIUM 9.7 MG/DL (8.5-10.1)
[2023-01-09 10:46] LABS: CREATININE SERUM 1.32 MG/DL (0.60-1.30); PHOSPHORUS 2.7 MG/DL (2.3-4.7)
[2023-01-09 11:12] LABS: BACTERIA,URINE TRACE /HPF; BILIRUBIN,URINE NEGATIVE (NEGATIVE); CLARITY,URINE CLEAR; COLOR,URINE YELLOW; GLUCOSE, URINE (UA) NEGATIVE (NEGATIVE); KETONES,URINE NEGATIVE (NEGATIVE); LEUKOCYTE ESTERASE ,URINE NEGATIVE (NEGATIVE); NITRITE,URINE NEGATIVE (NEGATIVE); PROTEIN,URINE NEGATIVE (NEGATIVE); WBC,URINE RARE /HPF
== END ==
LOC: LAB 09:47
DX: N18.32 Chronic kidney disease, stage 3b (principal)
CPT/HCPCS: 36415; 80069; 81000

== ENCOUNTER → 2023-01-24 | Outpatient (CLI) | payer MEDICARE, OTHER ==
--- NOTE | 2023-01-24 13:42 | Diagnostic Imaging Report ---
INDICATION: SUPRAPUBIC PAIN-CONCERN FOR RETENTION TECHNIQUE: Multiple real-time grayscale sonographic images were obtained of the kidneys. CORRELATION: None FINDINGS: RIGHT KIDNEY: 10.8 x 4.5 x 5.3 cm. LEFT KIDNEY: 10.5 x 4.7 x 5.7 cm. 2 small exophytic cyst right kidney. Largest 1.5 x 1.5 x 1.6 cm and addition one 1.3 x 1.3 x 0.9 cm. Probable cystic structure medially right kidney 2.3 x 2.1 x 1.1 cm. There is concern for potential solid mass mid aspect left kidney, 3.2 x 1.8 x 2.8 cm. Probable cyst 2.2 x 1.4 x 1.0 cm. There is otherwise thinned echogenic appearance about the renal parenchyma, compatible with a chronic medical renal disease. URINARY BLADDER: There is presence of bilateral ureteral jets. Urinary bladder appearing unremarkable. Prevoid Volume: 117 mL. Postvoid Volume: 23 mL. IMPRESSION: 1. Probable bilateral renal cysts along with a thin, echogenic appearance about the renal parenchyma compatible with chronic medical renal disease. 2. Concern for potential 3 cm solid mass left kidney. Neoplasm needs to be excluded. Dictated by: Dictated on workstation # [id number]
== END ==
LOC: RAD 09:50
PROVIDERS: ATTEND Nurse Practitioner Family
DX: N28.89 Other specified disorders of kidney and ureter (principal); N18.32 Chronic kidney disease, stage 3b
CPT/HCPCS: 76770

== ENCOUNTER → 2023-02-13 | Outpatient (CLI) | payer MEDICARE, OTHER ==
[~2023-02-13] VITALS: Ht 157 cm; Wt 96.0 kg
[~2023-02-13] MED LIST changes: +ALLO100T PO; +AMLO-250 PO; +APIX5TAB PO; +CATHETER FLUSH 10 ML SYR IVP PRN; +EVOL140P3 SQ; +FAMO1TAB PO; +HYDR25TA4 PO; +MULT200T12 PO; +NEBI10TA11 PO; +NITR0.4T39 SL; +REGADENOSON 0.4 MG/5 ML SYR IV ONE; +RT-ALBUINH INH; +SEMA0.258 SQ
[2023-02-13 09:35] VITALS: BP 158/91
--- NOTE | 2023-02-13 11:40 | Cardiology Stress Test Report ---
Stress Test Report Date of Procedure/Referring: PCP Radha Botello DO Admitting Physician Admitting Physician: Attending Physician: Angelina Flores MD Baseline Heart Rate: 75 Baseline Blood Pressure: Blood Pressure Systolic: 158 Blood Pressure Diastolic: 91 Baseline Vitals Vital Signs Date Time Temp Pulse Resp B/P (MAP) Pulse Ox O2 Delivery O2 Flow Rate FiO2 02/13/23 09:35 77 158/91 (113) Baseline EKG: Baseline EKG: NSR Summary After explaining the procedure to the patient, she signed a consent and then brought to the stress nuclear laboratory. Patient received 0.4 mg Lexiscan for stress test, ECG, heart rate and blood pressure were monitored continuously. Resting and stress dose of radio tracer were injected, imaging was acquired and reviewed in short axis, horizontal long axis and vertical long axis views. TID: 0.83 SSS: 7 SDS: 7 EF: 77 Patient tolerated Lexiscan well Breast attenuation with reversible ischemia involving the anterior wall anterior apex anterior lateral wall Normal left ventricular size, ejection fraction 77% Copy Copies To 1: RADHA BOTELLO BASHAR J MD Feb 13, 2023 11:40
== END ==
LOC: CARD 07:42
PROVIDERS: ATTEND Internal Medicine Cardiovascular Disease
DX: I10 Essential (primary) hypertension (principal); I25.10 Atherosclerotic heart disease of native coronary artery without angina pectoris
CPT/HCPCS: 78452; 93017; A9502; C8929; 93306

== ENCOUNTER 2023-02-22 07:54 | Day surgery (SDC) | payer MEDICARE ==
[~2023-02-22] VITALS: Ht 157.5 cm; Wt 96.3 kg
[2023-02-22] VITALS (10 sets, daily range): BP systolic 97–140; BP diastolic 60–80
[~2023-02-22 07:54] MED LIST changes: -ALLO100T PO; -AMLO-250 PO; -APIX5TAB PO; -CATHETER FLUSH 10 ML SYR IVP PRN; -EVOL140P3 SQ; -FAMO1TAB PO; -HYDR25TA4 PO; -MULT200T12 PO; -NEBI10TA11 PO; -NITR0.4T39 SL; -REGADENOSON 0.4 MG/5 ML SYR IV ONE; -RT-ALBUINH INH; -SEMA0.258 SQ
[2023-02-22] MEDS ORDERED: HEParin (CATH LAB) 2,000 ML IV ONE (08:00)
[2023-02-22] MEDS ORDERED: LIDOCAINE 1% INJ 20 ML VIAL ONE (08:00)
[2023-02-22] MEDS ORDERED: NS IV 1000 ML 1,000 ML IV SCH ×2 (08:00→09:45)
[2023-02-22] MEDS ORDERED: NS IV 1000 ML 1,000 ML ONE (08:00)
[2023-02-22 08:30] LABS: HEMATOCRIT 40 % (35-52); HEMOGLOBIN 12.7 g/dL (11.5-16.0); MEAN CORPUSCULAR HEMOGLOBIN 30 pg (25-34); MEAN CORPUSCULAR HGB CONC 32 g/dL (32-36); MEAN CORPUSCULAR VOLUME 95 fL (80-99); MEAN PLATELET VOLUME 11.7 fL (9.0-12.2); PLATELET COUNT 194 10^3/uL (130-400); WHITE BLOOD COUNT 6.9 10^3/uL (4.3-11.0)
[2023-02-22 08:41] LABS: BACTERIA,URINE TRACE /HPF; BILIRUBIN,URINE NEGATIVE (NEGATIVE); CLARITY,URINE CLEAR; COLOR,URINE YELLOW; GLUCOSE, URINE (UA) NEGATIVE (NEGATIVE); KETONES,URINE NEGATIVE (NEGATIVE); LEUKOCYTE ESTERASE ,URINE NEGATIVE (NEGATIVE); NITRITE,URINE NEGATIVE (NEGATIVE); PROTEIN,URINE NEGATIVE (NEGATIVE)
[2023-02-22 08:43] LABS: INR 0.9 (0.8-1.4); PROTHROMBIN TIME PATIENT 12.8 SEC (12.2-14.7)
[2023-02-22 08:46] LABS: ALBUMIN 4.2 GM/DL (3.2-4.5); BILIRUBIN,TOTAL 0.4 MG/DL (0.1-1.0); CALCIUM 9.3 MG/DL (8.5-10.1); CREATININE SERUM 1.28 MG/DL (0.60-1.30); TOTAL PROTEIN 6.7 GM/DL (6.4-8.2)
--- NOTE | 2023-02-22 08:47 | Diagnostic Imaging Report ---
EXAMINATION: Chest, 1 view. HISTORY: Precatheterization. Coronary artery disease. COMPARISON: 11/24/2017. FINDINGS: The lung volumes are normal. No focal consolidation is seen. No large pleural effusion or pneumothorax is seen. The cardiomediastinal silhouette is stable in size with post-CABG changes. There is calcified aortic atherosclerotic plaque. No acute osseous abnormality is seen. IMPRESSION: Cardiomegaly. No overt pulmonary edema. Dictated by: Dictated on workstation # [id number]
[2023-02-22] MEDS ORDERED: fentaNYL INJECTION 100 MCG/2 ML VIAL ONE (08:56)
[2023-02-22] MEDS ORDERED: HYDR25TA4 PO (08:56)
[2023-02-22] MEDS ORDERED: AMLO-250 PO (08:56)
[2023-02-22] MEDS ORDERED: ALLO100T PO (08:56)
[2023-02-22] MEDS ORDERED: MIDAZOLAM INJ 5 MG/5 ML VIAL ONE (08:56)
[2023-02-22] MEDS ORDERED: FAMO1TAB PO (08:56)
[2023-02-22] MEDS ORDERED: MULT200T12 PO (08:56)
[2023-02-22] MEDS ORDERED: APIX5TAB PO (08:56)
[2023-02-22] MEDS ORDERED: NEBI10TA11 PO (08:56)
[2023-02-22] MEDS ORDERED: RT-ALBUINH INH (08:56)
[2023-02-22] MEDS ORDERED: EVOL140P3 SQ (09:04)
[2023-02-22] MEDS ORDERED: NITR0.4T39 SL (09:04)
[2023-02-22] MEDS ORDERED: SEMA0.258 SQ (09:04)
--- NOTE | 2023-02-22 09:44 | Cardiac Procedure Note-CS/ASA ---
Pre-Procedure Note Pre-Op Procedure Note Date of Available H&P: Feb 13, 2023 Date H&P Reviewed: Feb 22, 2023 Time H&P Reviewed: 09:00 History & Physical: H&P Reviewed, Patient Examed, No changes noted Pre-Operative Diagnosis: CAD Moderate Sedation PreProcedure Time 09:00 ASA Score 3 Airway Lungs Heart ASA score ASA 1: a normal healthy patient ASA 2: a patient with a mild systemic disease (mid diabetes, controlled hypertension, obesity ASA 3: a patient with a severe systemic disease that limits activity (angina, COPD, prior Myocardial infarction) ASA 4: a patient with an incapacitating disease that is a constant threat to life (CHF, renal failure) ASA 5: a moribund patient not expected to survive 24 hrs. (ruptured aneurysm) ASA 6: a declared brain- patient whose organs are being harvested. For emergent operations, add the letter E after the classification Mallampati Classification Grade 3 Sedation Plan Analgesia, Amnesia, Plan communicated to team members, Discussed options with patient/fam, Discussed risks with patient/fam The patient is an appropriate candidate to undergo the planned procedure, sedation, and anesthesia. The patient immediately re-assessed prior to indication. VINH LIMA MD Feb 22, 2023 09:43
[2023-02-22] MEDS ORDERED: PATIENT MAY USE OWN MEDS, ALL PO SCH (09:45)
--- NOTE | 2023-02-22 09:45 | Discharge Inst-Post CATH ---
Discharge Inst-CATH/EP Problems Reviewed?: Yes Post Cardiac Cath/EP D/C Inst Follow Up/Plan Appointment with Dr. Flores's office in 2 to 4 weeks <b>CARDIAC CATH/EP PROCEDURE DISCHARGE INSTRUCTIONS</b> ACTIVITY * Go Home directly and rest. * Limit activity of the leg (or wrist if it was used) for 7 days including aer obics, swimming, jogging, bicycling, etc. * Restrict stair-climbing for 7 days if possible, if not, climb up with your non-cath leg, then bring together on the same step. * Avoid lifting, pushing, pulling or excessive movement of the affected extremi ty for 7 days. * Customary sexual activity may be resumed after 2 days-use caution not to use a position that strains or causes pain to the affected extremity. * No driving for 24 hours. * NO SMOKING. * Avoid straining for bowel movements for 7 days. * Gentle walking on level ground is allowed. * Returning to work will depend on the type of procedure and the results. Your doctor will discuss this with you. CALL YOUR DOCTOR FOR ANY OF THE FOLLOWING: *If bleeding from the puncture site occurs- Apply gentle pressure to site with clean cloth and call your doctor or EMS. * If a knot or lump forms under the skin, increases in size, or causes pain. * If bruising appears to be worsening or moving further down your leg instead of disappearing. * Temperature above 101 F. CARE OF YOUR GROIN INCISION; * Bruising or purple discoloration of the skin near the puncture site is common. * You may shower only, no bathtub bathing for 5 days. Be careful to avoid slipping as your leg may feel stiff. * If a closure device was used on your femoral artery, please see the attached guide regarding care of the device and your leg. * Leave dressing on FOR 24 hours. CARE OF YOUR WRIST INCISION; * Bruising or purple discoloration of the skin near the puncture site is common. * You may shower. * DO NOT submerge wrist. * Leave dressing on FOR 24 hours. VINH FLORES MD Feb 22, 2023 09:45
--- NOTE | 2023-02-22 09:49 | Cardiac Cath Report ---
Cardiac Cath Report Physician (s)/Hat Former (s) Physician VINH LIMA MD Pre-Procedure Diagnosis Pre-Procedure Diagnosis: CAD Post-Procedure Note Procedure Start Date: Feb 22, 2023 Name of Procedure: Coronary angiogram GAMA and vein graft angiogram Aortic arch angiogram Findings/Procedure Note PROCEDURE NOTE: 77-year-old lady with history of coronary artery disease, multiple intervention in the past, history of CABG, had an abnormal stress test, cardiac catheterization was advised After explaining the procedure to the patient, all pros and cons were explained, all questions were answered. The patient signed the consent and then she was placed on the cardiac catheterization laboratory. Groin was prepped SL fashion local anesthesia was used. Sheath placed in the right femoral artery artery. Gilberto right and left catheter were used to access the coronary system.Vein Graft evaluated. GAMA evaluated. Gilberto right catheter was placed in the aortic arch and aortic arch angiogram was done due to the heavy calcification in the aortic arch. Did not cross the aortic valve. At the end of the procedure the sheath was removed. Closure device was deployed FINDINGS: Hemodynamics LV did not cross the aortic valve Aorta 123/73 mean of 91 ANATOMY: Left Main is free of obstructive disease Left Anterior Descending is occluded at the midportion, GAMA to LAD is patent and vein graft to diagonal artery is patent Left Circumflex is moderate in size with patent stent in the circumflex artery no significant obstructive disease Right Coronary Artery is dominant artery with mild disease no significant obstructive disease GAMA to LAD is patent with good flow distally Vein Graft to diagonal artery is patent with good flow distally Aortic arch angiogram was done with a Gilberto right catheter, small aneurysmal dilatation in the aortic arch. Heavily calcified arch. Origin of the left subclavian artery and left carotid and the brachiocephalic artery are normal. 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 No intervention is warranted Anesthesia Type: Conscious Sedation Estimated blood loss (mL): 20 ml Contrast Amount: 62 ml Total Radiation Dose: 860 mGy Post-Procedure Diagnosis Post-operative diagnosis: Chest pain Coronary artery disease Hypertension Hyperlipidemia VINH LIMA MD Feb 22, 2023 09:49
== END 2023-02-22 14:05 | disposition home or self-care (01) ==
LOC: CATH 07:54 → EDSTATUS 10:00 → SDC 10:10 → CATH 10:10 → SDC 14:05
PROVIDERS: ATTEND Internal Medicine Cardiovascular Disease
DX: I25.10 Atherosclerotic heart disease of native coronary artery without angina pectoris (principal); I70.0 Atherosclerosis of aorta; I71.22 Aneurysm of the aortic arch, without rupture; I11.0 Hypertensive heart disease with heart failure; I50.9 Heart failure, unspecified; E78.2 Mixed hyperlipidemia; K21.9 Gastro-esophageal reflux disease without esophagitis; M19.90 Unspecified osteoarthritis, unspecified site; Z95.5 Presence of coronary angioplasty implant and graft; Z95.810 Presence of automatic (implantable) cardiac defibrillator; Z79.899 Other long term (current) drug therapy; Z79.01 Long term (current) use of anticoagulants
CPT/HCPCS: 36221; 71045; 80053; 80061; 81000; 85027; 85610; 85730; 87081; 93005; 93455; C1760; C1894; 36415

== ENCOUNTER → 2023-03-09 | Outpatient (CLI) | payer MEDICARE ==
[~2023-03-09] MED LIST changes: +ALLO100T PO; +AMLO-250 PO; +APIX5TAB PO; +EVOL140P3 SQ; +FAMO1TAB PO; +HYDR25TA4 PO; +MULT200T12 PO; +NEBI10TA11 PO; +NITR0.4T39 SL; +RT-ALBUINH INH; +SEMA0.258 SQ
== END ==
LOC: LAB 12:26
PROVIDERS: ATTEND Family Medicine
DX: E11.9 Type 2 diabetes mellitus without complications (principal)
CPT/HCPCS: 36415; 80069; 81000; 83036; 87077; 87088; 87186

== ENCOUNTER → 2023-03-29 | Outpatient (CLI) | payer MEDICARE ==
[~2023-03-29] MED LIST changes: +NEBI5TAB2 PO; -NEBI5TAB8 PO
[2023-03-29 11:16] LABS: BASOPHILS # (AUTO) 0.1 10^3/uL (0.0-0.1); BASOPHILS % (AUTO) 1 % (0-10); EOSINOPHILS % (AUTO) 0 % (0-10); HEMATOCRIT 40 % (35-52); HEMOGLOBIN 12.7 g/dL (11.5-16.0); LYMPHOCYTES # (AUTO) 1.4 10^3/uL (1.0-4.0); LYMPHOCYTES % (AUTO) 19 % (12-44); MEAN CORPUSCULAR HEMOGLOBIN 30 pg (25-34); MEAN CORPUSCULAR HGB CONC 32 g/dL (32-36); MEAN CORPUSCULAR VOLUME 95 fL (80-99); MEAN PLATELET VOLUME 11.4 fL (9.0-12.2); MONOCYTES # (AUTO) 0.7 10^3/uL (0.0-1.0); MONOCYTES % (AUTO) 10 % (0-12); NEUTROPHILS # (AUTO) 5.1 10^3/uL (1.8-7.8); NEUTROPHILS % (AUTO) 70 % (42-75); PLATELET COUNT 206 10^3/uL (130-400); WHITE BLOOD COUNT 7.3 10^3/uL (4.3-11.0)
[2023-03-29 11:30] LABS: ALBUMIN 4.4 GM/DL (3.2-4.5); CALCIUM 10.1 MG/DL (8.5-10.1); CREATININE SERUM 1.39 MG/DL (0.60-1.30); PHOSPHORUS 2.8 MG/DL (2.3-4.7); POTASSIUM 4.4 MMOL/L (3.6-5.0); URIC ACID 6.8 MG/DL (2.6-7.2)
== END ==
LOC: LAB 11:00
PROVIDERS: ATTEND Nurse Practitioner Family
DX: N18.32 Chronic kidney disease, stage 3b (principal)
CPT/HCPCS: 36415; 80069; 82306; 82570; 83970; 84156; 84550; 85025